=== PATIENT | female | born 1960 | race Caucasian/White ===

== ENCOUNTER → 2016-05-25 | Outpatient (CLI) | payer BC | END | disposition home or self-care (01) | LOC: GMAB 11:11 | PROVIDERS: ATTEND Family Medicine | DX: Z00.01 Encounter for general adult medical examination with abnormal findings (principal) ==

== ENCOUNTER → 2017-03-22 | Outpatient (CLI) | payer BC ==
--- NOTE | 2017-03-23 09:54 | US ---
EXAM DESCRIPTION: Soft Tissue,Head/Neck: Ultrasound. CLINICAL HISTORY: THYROID nodule. COMPARISON: None. TECHNIQUE: Transcutaneous scannin-dimensional and Doppler modes. FINDINGS: Right lobe dimensions 5.3 x 2.2 x 1.8 cm. Heterogeneous echoes. The nodule in the inferior pole measuring 8.7 x 7.3 x 6.6 mm. Nonvascular. Hypoechoic solid nodule in the posterior subcapsular lobe measuring 12 x 8 x 5 mm, nonvascular. Normal vascularity in the remainder of the lobe. No microcalcifications. Contour right lobe smooth. Juxta-thyroid masses/fluid: none. Left lobe dimensions 5.8 x 1.9 x 1.7 cm. Heterogeneous echoes. Complex nodule, mostly cystic, in the inferior aspect of the left lobe measuring 1.7 cm transverse. 2.1 x 1.3 cm in the sagittal plane. Nonvascular. Normal vascularity in the remainder of the lobe. No microcalcifications. Contour left lobe smooth. Juxta-thyroid masses/fluid: none. Isthmus thickness 3.1 mm. Heterogeneous echoes. . Hypoechoic nodule on the right side measuring 5.7 x 6.9 x 2.8 mm. Nonvascular. Normal vascularity in the remainder of the isthmus. Contour smooth. IMPRESSION: 1. Large complex nodule in the inferior pole of the left lobe which appears to be mostly cystic. This nodule meets the imaging criteria for fine needle aspiration sampling according to RP Best Practice recommendations, adopted from ACR white paper and Jones 3-tiered guidelines on incidental thyroid nodules. Please see below.* 2. Other nodules in the right lobe and isthmus do not meet these criteria for tissue sampling. These recommendations do not apply to patients with increased risk for thyroid cancer or patients with symptomatic thyroid disease. 3. No discrete solid masses, cystic masses, or edema in the surrounding soft tissues. *Further evaluation by thyroid US recommended for: -Solitary incidental thyroid nodule (ITN) with high risk imaging features (locally invasive nodule or suspicious lymph nodes) -Solitary ITN of any size in pediatric patients <= 18 years of age -Solitary ITN >= 1 cm in axial plane in patients between 18 and 35 years of age -Solitary ITN >= 1.5 cm in axial plane in patients >= 35 years of age -Heterogeneous enlarged thyroid gland -ITN avid on FDG-PET or other nuclear medicine (MIBI and octreotide) scans. FNA biopsy is also recommended for PET avid nodules. 2.No f/u imaging is recommended for ITN's not meeting the above criteria. 3.For multiple thyroid nodules, the above recommendations for solitary ITN are to be applied to the largest nodule. 4.No US or f/u recommended for ITN's without high risk features in patients with limited life expectancy or significant co-morbidities, unless clinically warranted. 5.These recommendations do not apply to patients w/ increased risk for thyroid cancer or patients with symptomatic thyroid disease. Recommendations for f/u of Incidental Thyroid Nodules (ITN) found on CT, MR, NM and Extrathyroidal US are based upon the ACR white paper and Jones 3-tiered system for managing ITN's: [facility] 2015 May;12(2): 143-50 Electronically signed by: Gagan Simmons MD 03/23/2017 9:53 AM [facility] [[email or web address]]
== END | disposition home or self-care (01) ==
LOC: US 07:57
PROVIDERS: ATTEND Family Medicine
DX: E04.1 Nontoxic single thyroid nodule (principal)

== ENCOUNTER → 2017-06-15 | Outpatient (CLI) | payer BC ==
--- NOTE | 2017-06-15 16:28 | NM ---
Nuclear parathyroid scan HISTORY: Hypercalcemia COMPARISON: None TECHNIQUE: Scintigraphic imaging of thyroid gland region in several obliquities, at 10 minutes and three hours following initial intravenous administration of 24.3 mCi of technetium 99m labeled sestamibi. FINDINGS: Initial imaging demonstrated relatively homogeneous and symmetric radiotracer deposition in both thyroid glands. Physiologic radiotracer uptake also seen in major salivary glands. At delayed imaging, there is homogeneous washout of radiotracer from both thyroid lobes. No focus of significant radiotracer retention within or around either thyroid lobe. IMPRESSION: No scintigraphic abnormality to convincingly indicate adenoma within or near either thyroid lobe. Electronically signed by: Felipe Blum MD 06/15/2017 4:27 PM [facility]
== END ==
LOC: NM 08:58
PROVIDERS: ATTEND Family Medicine
DX: E83.52 Hypercalcemia (principal)